=== PATIENT | female | born 1985 | race Two or more races ===

== ENCOUNTER 2018-06-12 08:40 | Outpatient (CLI) | payer OTHER | END 2018-06-12 08:51 | disposition home or self-care (01) | LOC: NUCLEAR 08:40 | DX: O76 Abnormality in fetal heart rate and rhythm complicating labor and delivery (principal) ==

== ENCOUNTER 2018-07-04 13:27 | Inpatient (IN) | payer OTHER ==
[~2018-07-04] VITALS: Ht 177.8 cm; Wt 3.6 kg
[2018-07-04] MEDS ORDERED: PRENATAL FORMU1 EAC1 PO (15:02)
[2018-07-04] MEDS ORDERED: NIFE60TA3 PO (15:03)
== END 2018-07-19 11:34 | disposition home or self-care (01) | DRG 786 ==
LOC: LDR 13:27 → OB/GYN 07-16 15:40
PROVIDERS: Specialist
PROC: 4A1HXCZ Monitoring of Products of Conception, Cardiac Rate, External Approach (ICD-10-PCS; 2018-07-04)
PROC: BY4FZZZ Ultrasonography of Third Trimester, Single Fetus (ICD-10-PCS; 2018-07-12)
PROC: 10D00Z1 Extraction of Products of Conception, Low, Open Approach (ICD-10-PCS; principal; 2018-07-16 10:15)
DX: O36.63X0 Maternal care for excessive fetal growth, third trimester, not applicable or unspecified (principal); O14.13 Severe pre-eclampsia, third trimester; O60.14X0 Preterm labor third trimester with preterm delivery third trimester, not applicable or unspecified; O12.23 Gestational edema with proteinuria, third trimester; O24.013 Pre-existing type 1 diabetes mellitus, in pregnancy, third trimester; O14.03 Mild to moderate pre-eclampsia, third trimester; E10.9 Type 1 diabetes mellitus without complications; Z3A.33 33 weeks gestation of pregnancy; Z96.41 Presence of insulin pump (external) (internal)